=== PATIENT | male | born 2000 | race Two or more races ===

== ENCOUNTER 2021-04-25 16:23 | Inpatient (IN) | payer OTHER ==
[~2021-04-25] VITALS: Ht 172.7 cm; Wt 49.5 kg
[2021-04-25 17:44] LABS: Basophils # (auto) 0 10 ^3/uL (0-0.2); Basophils % (auto) 0.3 % (0.0-2.0); Eosinophils # (auto) 0.1 10 ^3/uL (0-0.8); Eosinophils % (auto) 1.5 % (0.0-7.0); Hematocrit 48.2 % (41.0-53.0); Lymphocytes # (auto) 1.5 10 ^3/uL (0.4-5.4); Lymphocytes % (auto) 16.3 % (10.0-50.0); Mean Corpuscular Hemoglobin 30.9 pg (28.0-32.0); Mean Corpuscular Hgb Conc. 35.1 g/dL (32.0-36.0); Mean Corpuscular Volume 87.9 fL (80.0-100.0); Monocytes # (auto) 0.7 10 ^3/uL (0-1.3); Monocytes % (auto) 7.5 % (0.0-12.0); Neutrophils # (auto) 6.9 10 ^3/uL (1.6-8.6); Neutrophils % (auto) 74.4 % (37.0-80.0); Nucleated Red Blood Cells % 0.1 %; Red Blood Cells 5.48 10^6/uL (4.5-5.90); Red Cell Distribution Width 13.4 % (11.8-14.3); White Blood Cell 9.3 10^3/uL (4.4-10.8)
[2021-04-25 17:58] LABS: Albumin 4.4 g/dL (3.4-5.0); Anion Gap 4 (5-15); Blood Urea Nitrogen 14 mg/dL (7-18); Calcium 9.1 mg/dL (8.5-10.1); Carbon Dioxide 27 mmol/L (21-32); Chloride 105 mmol/L (98-107); Glucose 94 mg/dL (74-106); Potassium 4.2 mmol/L (3.5-5.1); Sodium 136 mmol/L (136-145)
[2021-04-25 18:03] LABS: Alanine Aminotransferase 28 U/L (16-61); Alkaline Phosphatase 92 U/L (45-117); Aspartate Aminotransferase 17 U/L (15-37); BUN/Creatinine Ratio 17.1; Bilirubin, Total 0.5 mg/dL (0.2-1.0); GFR African American 154 mL/min; GFR Non-African American 127 mL/min; Total Protein 8.5 g/dL (6.4-8.2)
[2021-04-25 19:04] LABS: Urine Bacteria NONE SEEN /hpf (None Seen); Urine Blood Negative /uL (Negative); Urine Specific Gravity 1.012 (1.001-1.035); Urine WBC <1 /hpf (0 - 3)
[2021-04-25 19:20] LABS: Alcohol, Urine < 3.0 mg/dL (0-10); Amphetamine Screen, Urine NEGATIVE (NEGATIVE); Barbiturate Scree,Urine NEGATIVE (NEGATIVE); Benzodiazephine Screen, Urine NEGATIVE (NEGATIVE); Cannabinoid Screen, Urine POSITIVE (NEGATIVE); Cocaine Screen, Urine NEGATIVE (NEGATIVE); Opiate Scree,Urine NEGATIVE (NEGATIVE); Phencyclidine Screen, Urine NEGATIVE (NEGATIVE)
[2021-04-25] MEDS ORDERED: LIDOCAINE 5% TOPICAL PATCH TOP ONE (22:45)
[2021-04-26] MEDS ORDERED: fentaNYL CITRATE 100 MCG/2 ML VL IV ONE ×3 (01:00→05:30)
[2021-04-26] MEDS ORDERED: MIDAZOLAM HCL 5 MG/ML-1ML VIAL IV ONE (01:00)
[2021-04-26] MEDS ORDERED: KETOROLAC TROMETH 30 MG/ML 1ML VIAL IV ONE (02:45)
[2021-04-26] MEDS ORDERED: MORPHINE SULFATE INJECTION 2 MG/2 ML SYRG IV ONE (09:30)
[2021-04-26] MEDS ORDERED: MORPHINE SULFATE INJECTION 2 MG/2 ML SYRG IV PRN (11:15)
[2021-04-26] MEDS ORDERED: NITROGLYCERIN 0.4 MG SL TAB SL PRN (11:15)
[2021-04-26] MEDS ORDERED: ONDANSETRON HCL 4 MG/2 ML VIAL IV PRN (11:15)
[2021-04-26] MEDS: HYDROcodone-ACET 5/325MG TAB PO PRN ×2 (14:24→22:36)
[2021-04-26] MEDS: MORPHINE SULFATE INJECTION 2 MG/2 ML SYRG IV PRN (18:41)
[2021-04-26 20:00] VITALS: BP 122/81
[2021-04-27] MEDS: MORPHINE SULFATE INJECTION 2 MG/2 ML SYRG IV PRN ×2 (04:12→10:24)
[2021-04-27 05:42] VITALS: BP 116/71
[2021-04-27] MEDS: HYDROcodone-ACET 5/325MG TAB PO PRN ×2 (06:14→21:00)
[2021-04-27 09:00] VITALS: BP 106/60
[2021-04-27] MEDS: CITALOPRAM HYDROBR 20 MG TAB PO SCH (09:23)
[2021-04-27 13:00] VITALS: BP 137/83
[2021-04-27 17:00] VITALS: BP 110/60
[2021-04-27 22:00] VITALS: BP 133/57
[2021-04-28] MEDS: HYDROcodone-ACET 5/325MG TAB PO PRN ×3 (04:50→18:22)
[2021-04-28 05:00] VITALS: BP 130/76
[2021-04-28 09:00] VITALS: BP 124/65
[2021-04-28] MEDS: CITALOPRAM HYDROBR 20 MG TAB PO SCH (10:11)
[2021-04-28 13:00] VITALS: BP 120/65
[2021-04-28 17:00] VITALS: BP 136/85
[2021-04-28 22:00] VITALS: BP 150/83
[2021-04-28] MEDS: MORPHINE SULFATE INJECTION 2 MG/2 ML SYRG IV PRN (22:02)
[2021-04-29 05:00] VITALS: BP 123/76
[2021-04-29 09:00] VITALS: BP 140/79
[2021-04-29] MEDS ORDERED: CITA-77 PO (09:25)
[2021-04-29] MEDS: CITALOPRAM HYDROBR 20 MG TAB PO SCH (10:08)
[2021-04-29 13:00] VITALS: BP 135/78
[2021-04-29 16:00] VITALS: BP 128/84
[2021-04-30] MEDS ORDERED: CITALOPRAM HYDROBR 20 MG TAB PO SCH (10:00)
[2021-05-03] MEDS ORDERED: CITALOPRAM HYDROBR 20 MG TAB PO SCH (10:00)
== END 2021-04-29 17:15 | disposition home or self-care (01) | DRG 200 ==
LOC: EDBD 16:23 → ER 16:23 → OVERFLOW 04-26 11:05 → WEST WING 04-26 19:51
PROVIDERS: ADMIT Nurse Practitioner Acute Care; ATTEND Internal Medicine Pulmonary Disease
DX: J93.83 Other pneumothorax (principal); R64 Cachexia; Z68.1 Body mass index [BMI] 19.9 or less, adult; F12.10 Cannabis abuse, uncomplicated; Z20.822 Contact with and (suspected) exposure to COVID-19; Z87.891 Personal history of nicotine dependence
CPT/HCPCS: 36415; 71045; 71250; 80053; 80307; 81001; 84484; 85025; 85379; 87426; 93005; 96374; 96375; G0378; J1885; J2250